=== PATIENT | male | born 1990 | race Caucasian/White ===

== ENCOUNTER 2021-10-07 20:57 | Emergency (ER) | payer SELFPAY ==
[~2021-10-07] VITALS: Ht 185.4 cm; Wt 100.0 kg
[2021-10-07] MEDS ORDERED: SODIUM CHLORIDE 0.9% 1,000 ML IV ONE (23:00)
[2021-10-07] MEDS ORDERED: LORAZEPAM 2MG/ML CPJ IM ONE (23:00)
[2021-10-07] MEDS ORDERED: HALOPERIDOL LACTATE 5MG/ML VIAL IM ONE (23:00)
[2021-10-08 00:59] LABS: BASOPHILS % 0.2 % (0.0-2.0); HEMOGLOBIN. 15.8 g/dL (14.0-18.0); LYMPHOCYTES % 10.7 % (20.0-50.0); MEAN CORPUSCULAR HEMOGLOBIN 31.4 pg (28.0-32.0); MEAN CORPUSCULAR VOLUME 91.5 fL (80.0-94.0); MEAN PLATELET VOLUME 10.1 fl (7.4-10.4); MONOCYTES % 7.2 % (2.0-8.0); NEUTROPHILS % 81.9 % (40.0-76.0); PLATELET 198 x1000/uL (130-400); RED BLOOD CELL COUNT 5.03 mill/uL (4.7-6.1); RED CELL DISTRIBUTION WIDTH 13.4 % (11.6-14.6)
[2021-10-08 01:03] LABS: CHLORIDE 106 mEq/L (98-107)
[2021-10-08 01:07] LABS: ETHANOL BLOOD < 10 mg/dL
[2021-10-08 12:54] VITALS: BP 120/74
[2021-10-08] MEDS ORDERED: IBUP-2029 MT (17:32)
== END 2021-10-08 13:16 | disposition home or self-care (01) ==
LOC: ER 20:57
DX: T43.621A Poisoning by amphetamines, accidental (unintentional), initial encounter (principal); G92.8 Other toxic encephalopathy; E86.0 Dehydration; R94.5 Abnormal results of liver function studies; Y92.59 Other trade areas as the place of occurrence of the external cause
CPT/HCPCS: 36415; 80053; 80307; 80320; 80329; 85025; 96360; 96361; 96372; 99285; J1630; J2060; J7030; Z7610; G0480

== ENCOUNTER 2021-10-08 17:20 | Emergency (ER) | payer SELFPAY ==
[~2021-10-08] VITALS: Ht 185.4 cm; Wt 82.0 kg
[2021-10-08 17:23] VITALS: BP 112/82
[2021-10-08] MEDS ORDERED: IBUP-2029 MT (17:32)
== END 2021-10-08 20:38 | disposition home or self-care (01) ==
LOC: ER 17:20
DX: Z04.89 Encounter for examination and observation for other specified reasons (principal); Z59.00 Homelessness unspecified
CPT/HCPCS: 99282